=== PATIENT | female | born 1970 | race African-American/Black ===

== ENCOUNTER 2022-05-02 08:37 | Emergency (ER) | payer OTHER ==
[2022-05-02] MEDS ORDERED: Magnesium 2 GM/50 ML BAG (IN WATER) ONE (08:57)
[2022-05-02] MEDS ORDERED: methylPREDNISolone Sod Succ/PF 125 MG/2 ML VIAL ONE (08:57)
[2022-05-02 09:15] LABS: #Eosinphils 0.2 10x3/uL (0.0-0.5); #Monocytes 0.8 10x3/uL (0.0-1.1); %Basophils 0.3 % (0.0-2.0); %Eosinophils 1.6 % (0.0-6.0); %Lymphocytes 28.1 % (18.0-47.0); %Monocytes 8.6 % (0.0-10.0); %Neutrophils 60.9 % (40.0-75.0); Mean Corpuscular HGB CONC 31.4 g/dL (32.0-36.0); Mean Corpuscular Hemoglobin 26.7 pg (27.0-33.0); Mean Platelet Volume 8.7 fl (7.4-10.4); Platelet Count 443 10x3/uL (150-450); RBC Distribution Width 14.1 % (11.5-14.5); Red Blood Cell (RBC) Count 4.87 10x6/uL (3.90-5.03); White Blood Cell (WBC) Count 9.8 10x3/uL (3.5-10.5)
[2022-05-02 09:31] LABS: ALT (SGPT) 22 U/L (8-55); AST (SGOT) 18 U/L (5-34); Albumin 4.1 g/dL (3.5-5.0); Alkaline Phosphatase 142 U/L (40-110); Anion Gap 17 mmol/L (10-20); BUN (Urea Nitrogen) 20 mg/dL (9.8-20.1); Bilirubin, Total 0.3 mg/dL (0.2-1.2); Calc. Creatinine Clearance 0 mL/min (70-130); Calcium 11.8 mg/dL (7.8-10.44); Carbon Dioxide 25 mmol/L (22-29); Chloride 103 mmol/L (98-107); Estimated GFR 67; Globulin 4.2 g/dL (2.4-3.5); Glucose 143 mg/dL (70-105); Potassium 4.2 mmol/L (3.5-5.1); Protein, Total 8.3 g/dL (6.0-8.3); Sodium 141 mmol/L (136-145)
[2022-05-02] MEDS ORDERED: Cefepime 2 GM VIAL ONE (10:06)
[2022-05-02] MEDS ORDERED: Vancomycin 1 GM VIAL ONE (10:30)
[2022-05-02 12:01] LABS: Lactic Acid 2.8 mmol/L (0.5-2.2)
== END 2022-05-02 16:49 | disposition short-term general hospital (02) ==
LOC: CSHERS 08:37
DX: J95.03 Malfunction of tracheostomy stoma (principal); I11.0 Hypertensive heart disease with heart failure; I50.9 Heart failure, unspecified; I25.10 Atherosclerotic heart disease of native coronary artery without angina pectoris
CPT/HCPCS: 36415; 71045; 80053; 83605; 83735; 83880; 84484; 85025; 87040; 87077; 87149; 87186; 93005; 94644; 94760; 96365; 96366; 96375; J0692; J2930; J3370; J3475; J7611

== ENCOUNTER 2023-04-04 08:19 | Outpatient (CLI) | payer OTHER, MEDICAID | END 2023-04-04 08:20 | disposition home or self-care (01) | LOC: CSHULT 08:19 | PROVIDERS: ATTEND Advanced Practice Midwife | DX: T83.9XXA Unspecified complication of genitourinary prosthetic device, implant and graft, initial encounter (principal); N85.8 Other specified noninflammatory disorders of uterus | CPT/HCPCS: 76856 ==